=== PATIENT | female | born 1945 | race Caucasian/White ===

== ENCOUNTER → 2016-07-03 | Outpatient (CLI) | payer OTHER ==
[~2016-07-03] MED LIST: CLR10 PO; IBUP1CAP9 PO; METR1TAB4 PO; RISE150T PO
[2016-07-03 17:08] LABS: IMMUNOGLOBULN M 39.9 mg/dL (40-230)
--- NOTE | 2016-07-04 11:51 | CODING QUERY NO DIAGNOSIS ---
TREATMENT RENDERED WITHOUT A DIAGNOSIS To promote full compliance with coding requirements relating to patient care, physician participation is requested in all cases of packing tractor machine operator uncertainty. Please assist us with providing a diagnosis/symptom for the test(s) below: A diagnosis/symptom was not documented on your Order. A valid diagnosis/symptom is required to bill all insurances. Please remember that we are unable to code a diagnosis of rule out, probable, possible, questionable, or suspected. Tests that require a diagnosis: * FREE KAPPA LAMBDA CHAIN DIAGNOSIS: * IMMUNOGLOBIN G,A,M DIAGNOSIS: Provider Signature: Date: Thank you Isabell Ozuna [employer] Information Management Once completed, please kindly fax back to [phone] For questions please call [phone]
[2016-07-06 06:46] LABS: CREATININE UR 64 MG/DL (20-320); FREE KAPPA 17.2 MG/L (3.3-19.4); FREE KAPPA/LAMBDA RATIO 1.76 (0.26-1.65); FREE LAMBDA 9.8 MG/L (5.7-26.3)
== END | disposition home or self-care (01) ==
LOC: C.LABBC 13:27
PROVIDERS: ATTEND Internal Medicine Hematology & Oncology
DX: D47.2 Monoclonal gammopathy (principal)

== ENCOUNTER → 2016-08-04 | Outpatient (CLI) | payer OTHER ==
--- NOTE | 2016-08-07 15:12 | MAMMOGRAPHY REPORT ---
BILATERAL DIGITAL SCREENING MAMMOGRAM WITH CAD: 08/04/2016 TECHNIQUE: Current study was also evaluated with a Computer Aided Detection (CAD) system. Bilatera l CC and MLO views were obtained. COMPARISON: Comparison is made to exams dated: 08/02/2015 mammogram, 07/01/2014 mammogram, 06/24/2012 m ammogram, and 06/20/2011 mammogram - [facility]. BREAST COMPOSITION: The tissue of both breasts is heterogeneously dense, which may obscure small ma sses. FINDINGS: There is a 12 mm asymmetry seen within the left breast middle depth along the posterior n ipple line on the cc view, which likely represents normal overlapping fibroglandular tissue although spot compression tomosynthesis views are recommended for further evaluation. There are loosely cesia uped calcifications in the left 12:00 breast, for which spot magnification views are recommended for further evaluation. The remainder of both breasts are stable compared to prior exams, without suspicious masses, calcifi cations, or areas of nonsurgical architectural distortion noted. A linear scar marker denotes a sca r on the right upper outer breast. IMPRESSION: ACR BI-RADS CATEGORY 0: INCOMPLETE EVALUATION: NEED ADDITIONAL IMAGING EVALUATION Left breast asymmetry and calcifications, for which additional imaging evaluation is recommended. The patient will be called to schedule an appointment. Approximately 10% of breast cancers are not detected with mammography. A negative mammographic repor t should not delay biopsy if a clinically suggestive mass is present. Nelly Antony M.D. ah/:08/04/2016 15:44:46 Field Aide: Princess JENKINS(Jc)(Yenny), [facility] letter sent: Addl Imaging 0 BI-RADS Code: ACR BI-RADS Category 0: Incomplete Evaluation: Need Additional Imaging Evaluation
== END | disposition home or self-care (01) ==
LOC: C.MAMM 13:21
PROVIDERS: ATTEND Obstetrics & Gynecology
DX: Z12.31 Encounter for screening mammogram for malignant neoplasm of breast (principal); N64.89 Other specified disorders of breast; R92.1 Mammographic calcification found on diagnostic imaging of breast

== ENCOUNTER → 2016-08-17 | Outpatient (CLI) | payer OTHER ==
--- NOTE | 2016-08-17 13:26 | MAMMOGRAPHY REPORT ---
UNILATERAL LEFT DIGITAL DIAGNOSTIC MAMMOGRAM TOMOSYNTHESIS AND TARGETED LEFT ULTRASOUND: 08/17/2016 CLINICAL HISTORY: Callback from screening mammogram for left breast asymmetry and calcifications. TECHNIQUE: Breast tomosynthesis in addition to standard 2D mammography was performed. Spot magnifi cation left CC and ML views and spot compression tomosynthesis CC and MLO views were obtained. COMPARISON: Comparison is made to exams dated: 08/04/2016 mammogram, 08/02/2015 mammogram, 07/01/2014 mammogram, 06/30/2013 mammogram, 06/24/2012 mammogram, and 06/20/2011 mammogram - [facility]. BREAST COMPOSITION: The tissue of the left breast is heterogeneously dense, which may obscure small masses. FINDINGS: Spot compression views of the left breast demonstrate an ill-defined asymmetry with associ ated architectural distortion seen along the posterior nipple line on the cc view middle depth, like ly superior on the MLO view. Spot magnification views demonstrate loosely grouped coarse heterogene ous calcifications within the left 12:00 breast in the region of the asymmetry on the cc view, which span approximately 2.9 x 1.7 cm. Targeted ultrasound was performed of the left 12:00, 6:00, and subareolar breast. In the left breas t at 11:00, extending from 1-4 cm from the nipple, there is an ill-defined hypoechoic mass which reji sures up to 3.6 x 1.1 x 1.2 cm in extent. This is felt to correspond with the asymmetry and associa diana calcifications seen mammographically, and is indeterminant. In the left subareolar breast, ther e is an oval hypoechoic solid mass which measures 1.5 x 0.6 x 0.9 cm. The margins are not completel y circumscribed. This mass is indeterminant and ultrasound-guided biopsy is also recommended. In t he left breast at 6:00 periareolar region, there is an oval circumscribed solid hypoechoic 6 x 3 x 6 mm mass, which appears similar to the subareolar mass. IMPRESSION: ACR BI-RADS CATEGORY 4: SUSPICIOUS, TARGETED ULTRASOUND ACR BI-RADS CATEGORY 4: SUSPICI OUS 1. Ill-defined hypoechoic 3.6 cm mass in the left breast at 11:00 on ultrasound, which is felt to c orrespond with the asymmetry, architectural distortion, and calcifications seen mammographically. T he mass is indeterminant and ultrasound guided core needle biopsy is recommended for further evaluat ion. 2. Hypoechoic solid 1.5 cm mass in the left subareolar breast, which is indeterminate and ultrasoun d-guided core needle biopsy is recommended for further evaluation. Management of the smaller 6 mm s imilar-appearing mass in the left 6:00 breast will be based on the pathology results. A phone call was made to the physician's office to confirm faxed results were received. The patient has been verbally notified of the results. The patient tentatively scheduled the procedures before leaving the department. Approximately 10% of breast cancers are not detected with mammography. A negative mammographic repor t should not delay biopsy if a clinically suggestive mass is present. Nelly Antony M.D. ah/:08/17/2016 12:29:38 Air Quality Specialist: Lourdes DACOSTA)(Yenny), [facility] letter sent: Abnormal 4/5 BI-RADS Code: ACR BI-RADS Category 4: Suspicious Ultrasound BI-RADS: ACR BI-RADS Category 4: Suspic ious
== END | disposition home or self-care (01) ==
LOC: C.MAMM 10:56
PROVIDERS: ATTEND Obstetrics & Gynecology
DX: N64.9 Disorder of breast, unspecified (principal); R92.1 Mammographic calcification found on diagnostic imaging of breast; N63 Unspecified lump in breast

== ENCOUNTER → 2016-08-22 | Outpatient (CLI) | payer OTHER ==
--- NOTE | 2016-08-22 13:53 | Discharge Instructions ---
Discharge Instructions Procedure Procedure Date: Aug 22, 2016. Reason for visit: Left Masses. Discharge Discharge Date: Aug 22, 2016. Discharge Diagnosis: post left breast ultrasound guided core biopsy x 3 Instructions Activity Recommendations: Additional Limitations (see below) Return to School/Work: no limitations Recommended Home Diet: No Limitations Provider Instructions: ACTIVITY RECOMMENDATIONS: * No lifting, pushing, pulling or exercising the affected side for three days. RETURN TO SCHOOL/WORK: * You may return to work/school after the procedure, but do not perform any strenuous activities for 24 to 48 hours. MEDICATIONS: * Tylenol (two 325 mg) every four to six hours if needed for mild pain (if not allergic to Tylenol). DIET: * Resume previous diet. SPECIAL CARE INSTRUCTIONS: * Keep biopsy site dry for 24 hours. May shower after 24 hours, but do not soak (bathe) incision. * May remove Tegaderm (plastic patch) tomorrow AFTER showering. * Leave the steri-strips on for one week. Allow the steri-strips to fall off by themselves. If not off after one week, you may remove them. You may place a Bandaid crosswise over the strips, if desired. * Apply ice 10 minutes on and 10 minutes off as needed. * Wear a bra at bedtime to sleep more comfortably for 2-3 days. * Your referring physician should have the results after approximately 5 to 7 business days. * Call for unusual bleeding, fever, drainage, etc or if you have any questions call [phone] during normal business hours or after hours call Dr Eduardo, . FOLLOW UP VISIT: Follow-up with Referring Physician as scheduled. Allergies Coded Allergies: No Known Allergies (Unverified , 12/09/13) Aida Alcala Recommendations: Call your doctor if: * Temperature above 101 degrees * Pain not relieved by pain medicine ordered * There is increased drainage or redness from any incision * You have any unanswered questions or concerns. Your Doctors Instructions noted above were prepared by provider Edwige Eduardo. Patient Signature Section: Patient Instructions Signature Page Nelly Barclay Patient (or Guardian) Signature/Date: I have read and understand the instructions given to me by my caregivers. Caregiver/RN/Doctor Signature/Date: The above-named patient and/or guardian has received patient instructions on this date. + Original Patient Signature Page (only) stays with chart. Please make copy for patient.
--- NOTE | 2016-08-22 15:21 | MAMMOGRAPHY REPORT ---
ULTRASOUND GUIDED BIOPSY: 08/22/2016 CLINICAL HISTORY: 3 indeterminate solid masses in the left breast 11:00, 6:00 and retroareolar axes. Patient presents for ultrasound guided core biopsy 3. Please refer to the report from left breast ultrasound guided core biopsy performed at the same time for full detail. IMPRESSION: ULTRASOUND GUIDED BIOPSY Please refer to the report from left breast ultrasound guided core biopsy performed at the same time for full detail. Edwige Eduardo M.D. ay/:08/22/2016 14:32:55 Compo Conveyor Operator: Lourdes JENKINS(R)(M), [facility]
--- NOTE | 2016-08-22 15:21 | MAMMOGRAPHY REPORT ---
THIS REPORT HAS BEEN AMENDED. MULTIPLE ULTRASOUND GUIDED BIOPSIES LEFT BREAST: 08/22/2016 CLINICAL HISTORY: Indeterminate solid masses in the 11:00, retroareolar and 6:00 axes of the left br east. Patient presents for ultrasound-guided core needle biopsy 3. COMPARISON: Comparison is made to exams dated: 08/17/2016 ultrasound, 08/17/2016 mammogram, 08/04/2016 m ammogram, 08/02/2015 mammogram, 07/01/2014 mammogram, and 06/30/2013 mammogram - [facility]. PATIENT CONSENT: The procedure, risks and benefits were discussed with the patient and informed writ ten consent was obtained. Specific risks to this procedure include: bleeding, infection, puncture of adjacent structure, nontarget biopsy, sampling error, metal allergy and medication reaction. PROCEDURE DESCRIPTION: First real-time high-resolution ultrasound was performed in the 11:00, retroa reolar and 6:00 axes of the left breast, to reevaluate the indeterminate solid masses seen on prior ultrasound. They are all identified and appear similar to the previous ultrasound. After discussin g these findings with the patient the decision was made to sample all 3 masses that she would not ne ed to return for a possible additional biopsy in the 6:00 axis. Then a time out was performed and the left breast was agreed as the site of the biopsies. First the irregular solid multilobulated mass in the 11:00 axis was identified and targeted for biopsy. The skin of the left breast was prepped and draped in the usual sterile fashion. Subcutaneous and intrap arenchymal 1% buffered lidocaine, with and without epinephrine was administered as local anesthesia in the 11:00 axis. A skin incision was made. Through the incision, 3 samples were taken with a 14 g auge Achieve biopsy device. Due to hemorrhage after sampling, the mass was less conspicuous after t he third sample and a ribbon-shaped metallic marker was placed at the biopsy site. Hemostasis was ac hieved after several minutes of manual compression. Then the taller than wide hypoechoic solid mass in the 6:00 breast was identified and targeted for b iopsy. Additional 1% buffered lidocaine with and without epinephrine was administered. A skin inci tonja was made. Through the incision, 4 samples were taken with a 14 gauge Achieve biopsy device. A wing-shaped metallic marker was placed at the biopsy site. Hemostasis was achieved after several mi nutes of manual compression. Finally the parallel solid lobulated mass in the retroareolar left breast was identified and targete d for biopsy. Additional 1% buffered lidocaine without epinephrine was administered. A skin incisio n was made. Through the incision, 4 samples were taken with a 14 gauge Achieve biopsy device. A co iled metallic marker was placed at the biopsy site. Hemostasis was achieved after several minutes of manual compression. All of the samples were sent to the pathology department in appropriately labeled containers. The p atient left the department in satisfactory condition. Postprocedure left CC and MLO tomosynthesis images were obtained. 3 new metallic biopsy markers are seen within the left breast. There is a hematoma in the retroareolar breast measuring approximatel y 2.4 x 1.7 cm. Additional 3.5 cm hematoma at the site of the first biopsy in the 11:00 axis. The patient was instructed to keep ice and cold compresses on the area throughout the remainder of the e vening. IMPRESSION: ULTRASOUND GUIDED BIOPSY Status post ultrasound guided core needle biopsy 3 in the left breast 11:00, retroareolar and 6:00 axes. Metallic biopsy markers were placed at each site of biopsy. The patient will receive notification of the biopsy results from her referring physician. Edwige Eduardo M.D. ay/:08/22/2016 15:12:32 Client Relation Specialist: Lourdes JENKINS (R)(Yenny), [facility] AMENDMENT: 08/30/2016 Edwige Eduardo M.D. 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 The pathology results are concordant with the imaging appearance. Two additional ultrasound-guided core biopsies performed of other solid masses in the left retroareo lar breast and left 6:00 breast yielded fibroadenomas. These pathology results are also concordant with the imaging appearance. Given the ill-defined nature of the biopsy proven DCIS and dense breasts mammographically, it is dif ficult to assess accurate and measurable extent of disease. Therefore, further evaluation with a bi lateral breast MRI prior to definitive treatment is recommended.
--- NOTE | 2016-08-22 15:22 | MAMMOGRAPHY REPORT ---
UNILATERAL LEFT DIGITAL DIAGNOSTIC MAMMOGRAM TOMOSYNTHESIS: 08/22/2016 CLINICAL HISTORY: Status post ultrasound-guided core biopsy 3 in the left breast. Please refer to the report from left breast ultrasound guided core biopsy performed at the same time for full detail. IMPRESSION: POST PROCEDURE IMAGING FOR MARKER PLACEMENT Please refer to the report from left breast ultrasound guided core biopsy performed at the same time for full detail. Approximately 10% of breast cancers are not detected with mammography. A negative mammographic repor t should not delay biopsy if a clinically suggestive mass is present. Edwige Eduardo M.D. ay/:08/22/2016 14:32:00 Gas Plant Technician: Lourdes JENKINS(Jc)(Yenny), [facility] BI-RADS Code: Post Procedure Imaging For Marker Placement
== END | disposition home or self-care (01) ==
LOC: C.MAMM 12:35
PROVIDERS: ATTEND Obstetrics & Gynecology
DX: D05.12 Intraductal carcinoma in situ of left breast (principal); D24.2 Benign neoplasm of left breast

== ENCOUNTER → 2016-10-19 | Outpatient (CLI) | payer OTHER | END | disposition home or self-care (01) | LOC: C.PAPS 08:31 | PROVIDERS: ATTEND Obstetrics & Gynecology | DX: Z12.4 Encounter for screening for malignant neoplasm of cervix (principal); R87.610 Atypical squamous cells of undetermined significance on cytologic smear of cervix (ASC-US) ==

== ENCOUNTER → 2017-01-04 | Outpatient (CLI) | payer OTHER ==
[~2017-01-04] MED LIST changes: -METR1TAB4 PO
[2017-01-04 16:44] LABS: BASO % 0.6 %; BASO ABS # 0.03 K/uL (0-0.2); COMPLETE YES; EOS % 2.8 %; HEMATOCRIT 42.4 % (37-47); IG% 0.4 %; LYMPH % 29.6 %; LYMPH ABS # 1.39 K/uL (1.2-3.4); MEAN CELL VOLUME 88.3 fL (80-100); MEAN CORPUSCULAR HEMOGLOBIN 29.8 pg (25-34); MEAN CORPUSCULAR HGB CONC 33.7 g/dl (32-36); MEAN PLATELET VOLUME 10.1 fL (7.4-10.4); MONO % 8.5 %; NEUT % 58.1 %; PLATELET COUNT 258 K/uL (130-400); WHITE BLOOD COUNT 4.69 K/uL (4.8-10.8)
[2017-01-04 16:59] LABS: ALT/SGPT 18 U/L (12-78); AST/SGOT 12 U/L (15-37); BLOOD UREA NITROGEN 10 mg/dl (7-18); BUN/CREATININE RATIO 14.2 (10-20); CALCIUM 9.1 mg/dl (8.5-10.1); CARBON DIOXIDE 29 mmol/L (21-32); CHLORIDE 108 mmol/L (98-107); GLUCOSE 98 mg/dl (70-99); POTASSIUM 4.9 mmol/L (3.5-5.1); SODIUM 141 mmol/L (136-145)
[2017-01-04 17:01] LABS: ALKALINE PHOSPHATASE 63 U/L (45-117)
[2017-01-08 16:36] LABS: ALBUMIN 3.8 G/DL (3.8-4.8); FREE KAPPA 17.4 MG/L (3.3-19.4); FREE KAPPA/LAMBDA RATIO 1.69 (0.26-1.65); FREE LAMBDA 10.3 MG/L (5.7-26.3); IMMUNOFIXATION IGA SERUM 228 MG/DL (81-463); IMMUNOFIXATION IGG SERUM 1032 MG/DL (694-1618); IMMUNOFIXATION IGM SERUM 40 MG/DL (48-271); TOTAL PROTEIN 6.4 G/DL (6.2-8.3)
== END | disposition home or self-care (01) ==
LOC: C.LABBC 12:44
PROVIDERS: ATTEND Internal Medicine Hematology & Oncology
DX: D47.2 Monoclonal gammopathy (principal)

== ENCOUNTER → 2017-01-16 | Outpatient (CLI) | payer OTHER ==
[2017-01-16 14:14] VITALS: BP 151/91; PULSE 72; TEMP 36.7; O2SAT 97
--- NOTE | 2017-01-16 15:04 | Radiation Oncology Follow-Up ---
Radiation Oncology Follow-Up Date of Visit Jan 16, 2017. 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 She received 5130 cGy utilizing hypo-fractionation. Last Edited By: Jeanie Madrid on Dec 20, 2016 14:01 History of Present Illness Ms. Barclay is a 71-year-old postmenopausal female who recently presented with an abnormal mammogram on 08/04/2016. The patient had bilateral digital screening mammograms which revealed a 12 mm asymmetry in the left breast along the nipple line. The patient was subsequently brought back for a unilateral left digital diagnostic mammogram and targeted left ultrasound on 08/17/2016. Findings from the repeat mammogram revealed an ill-defined asymmetry with associated architectural distortion seen along the posterior nipple line; ultrasound revealed an ill-defined hypoechoic 3.6 mm mass in the left breast in the 11 o' clock position as well as a 1.5 cm mass in the left subareolar breast and an additional similar appearing mass in the left 6:00 breast. The patient underwent targeted ultrasound guided biopsies of 3 masses in the left breast on 08/22/2016. 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 The biopsies in the left breast at the 6 o'clock position and retroareolar positions did not reveal any evidence of carcinoma. The patient was seen and evaluated by Dr. Shakir Astorga who discuss treatment options. The patient elected to undergo a left breast lumpectomy on 09/22/[address] Astorga. Pathology from the left breast lumpectomy revealed ductal carcinoma in situ that measured 3 cm in the greatest dimension; the DCIS was grade 1 in there is no evidence of necrosis. The margins were negative and the closest margin was 1 mm which was the inferior margin. Pathology did confirm that there were changes consistent with the previous biopsy site. During the procedure, the patient did have a development of hematoma which is now healing. Dr. Astorga has discuss anti-hormonal therapy with the patient and she is currently considering this. We are now seeing the patient in consultation discussed role of adjuvant radiation therapy. She underwent a CT simulation and was found to be a candidate for hypo- fractionation. Radiation was completed 12/13/2016. She received 5130 cGy Interim History She's been doing well over this past month. The dark discoloration of the skin is steadily improving. There has been some dryness and peeling. She also noticed that there were moles on her breast that did become darker and slightly raised. These are now less raised. She continues to use the natural care gel. He denied any pain or tenderness. She's had no change of the axilla. Allergies Coded Allergies: No Known Allergies (Unverified , 12/09/13) Home Medications Scheduled Loratadine (Claritin), 10 PO Daily prn Risedronate Sodium (Actonel), 1 TAB PO MONTHLY Scheduled PRN Ibuprofen (Ibuprofen), 200 MG PO for Pain Review of Systems Gastrointestinal: Symptoms: WNL Oral: Symptoms: No Problems Respiratory: Symptoms: WNL Urinary: Symptoms: WNL Skin: Symptoms: No Problems Other Skin Symptoms: has several flat red small lopez onright arms and legs Breast: Right Upper Arm Measurement: 31.0 Right Mid Arm Measurement: 22.5 Right Wrist Measurement: 15.5 Left Upper Arm Measurement: 31.0 Left Mid Arm Measurement: 23.0 Left Wrist Measurement: 16.0 Additional Notes: She completed a distress management report and answered "no" to all questions other than she has some mild depression. She feels this is related to some bereavement also. She also has some difficulty with sleep. Physical Exam Vital Signs Date Time Temp Pulse Resp B/P (MAP) Pulse Ox O2 Delivery O2 Flow Rate FiO2 01/16/17 14:14 36.7 72 18 151/91 97 Pain: Patient Pain Scale: 0 - 10 Initial Pain Intensity: 0.0 General Appearance: no apparent distress Eyes: normal inspection, EOMI ENT: normal ENT inspection, hearing grossly normal Neck: no adenopathy, thyroid normal Respiratory/Chest: lungs clear, no respiratory distress, no accessory muscle use Breast: Breast examination reveals hyperpigmentation of the left breast. There is some mild edema in the lower quadrants. There is dry desquamation at the area of the nipple. There is no wet desquamation. There are no signs of infection. There are no masses or tenderness and no axillary adenopathy. Using [place] score cosmesis she has a a fair outcome. There are some keratotic lesions that show more hyperpigmentation in the area of treatment. The right breast showed no masses or tenderness no axillary adenopathy. Cardiovascular: regular rate, rhythm, no gallop, no murmur Neurologic/Psychiatric: no motor/sensory deficits, alert, normal mood/affect Skin: warm/dry Laboratory Studies Test 10/19/16 12:00 01/04/17 12:54 Human Papilloma Virus E6/E7 mRNA NOT DETECTED (NOT DETECTED) White Blood Count 4.69 K/uL (4.8-10.8) Red Blood Count 4.80 M/uL (4.2-5.4) Hemoglobin 14.3 g/dL (12.0-16.0) Hematocrit 42.4 % (37-47) Mean Corpuscular Volume 88.3 fL (80-100) Mean Corpuscular Hemoglobin 29.8 pg (25-34) Mean Corpuscular Hemoglobin Concent 33.7 g/dl (32-36) Platelet Count 258 K/uL (130-400) Mean Platelet Volume 10.1 fL (7.4-10.4) Neutrophils (%) (Auto) 58.1 % Lymphocytes (%) (Auto) 29.6 % Monocytes (%) (Auto) 8.5 % Eosinophils (%) (Auto) 2.8 % Basophils (%) (Auto) 0.6 % Neutrophils # (Auto) 2.72 K/uL (1.4-6.5) Lymphocytes # (Auto) 1.39 K/uL (1.2-3.4) Monocytes # (Auto) 0.40 K/uL (0.11-0.59) Eosinophils # (Auto) 0.13 K/uL (0-0.5) Basophils # (Auto) 0.03 K/uL (0-0.2) RDW Standard Deviation 46.0 fL (36.4-46.3) RDW Coefficient of Variation 14.2 % (11.5-14.5) Immature Granulocyte % (Auto) 0.4 % Immature Granulocyte # (Auto) 0.02 K/uL (0.00-0.02) Sodium Level 141 mmol/L (136-145) Potassium Level 4.9 mmol/L (3.5-5.1) Chloride Level 108 mmol/L (98-107) Carbon Dioxide Level 29 mmol/L (21-32) Anion Gap 4.0 mmol/L (3-11) Blood Urea Nitrogen 10 mg/dl (7-18) Creatinine 0.70 mg/dl (0.60-1.20) Estimated GFR () 101.0 Estimated GFR (Non- 87.2 BUN/Creatinine Ratio 14.2 (10-20) Random Glucose 98 mg/dl (70-99) Calcium Level 9.1 mg/dl (8.5-10.1) Total Bilirubin 0.4 mg/dl (0.2-1) Aspartate Amino Transferase (AST) 12 U/L (15-37) Alanine Aminotransferase (ALT) 18 U/L (12-78) Alkaline Phosphatase 63 U/L (45-117) Total Protein 6.7 gm/dl (6.4-8.2) Albumin 3.4 gm/dl (3.4-5.0) Globulin 3.3 gm/dl (2.5-4.0) Albumin/Globulin Ratio 1.0 (0.9-2) Ptuil-5-Ilovyvtqm 0.3 G/DL (0.2-0.3) Sgiiu-3-Fqjjjmxhv 0.5 G/DL (0.5-0.9) Qsrl-1-Spimswap 0.5 G/DL (0.4-0.6) Dkqp-9-Ikcfzmpk 0.4 G/DL (0.2-0.5) Gamma Globulins 1.0 G/DL (0.8-1.7) Prot Electrophor Monoclonal Peak 3 G/DL (NOT DETECTED) Serum Monoclonal Protein G/DL (NOT DETECTED) Serum Monoclonal Protein (2) G/DL (NOT DETECTED) Protein Electrophoresis Interpret SEE NOTE Total Protein (SPIKE) 6.4 G/DL (6.2-8.3) Albumin (SPIKE) 3.8 G/DL (3.8-4.8) Immunofixation IgG 1032 MG/DL (694-1618) Immunofixation IgA 228 MG/DL (81-463) Immunofixation IgM 40 MG/DL (48-271) Immunofixation Interpretation SEE NOTE Free Watchtower Light Chains, Quant 17.4 MG/L (3.3-19.4) Free Lambda Light Chains, Quant 10.3 MG/L (5.7-26.3) Free Watchtower/Lambda Light Chain Ratio 1.69 (0.26-1.65) Assessment & Plan Plan: Continue follow-up with her primary care physician and Dr. Astorga. She is seeing Dr. Astorga next month. She stated that she is planning to schedule follow-up mammography at that time. She has seen Dr. Kulkarni and has discussed tamoxifen. She plans to get her prescription for the tamoxifen from Dr. Astorga at her next visit. Today we completed a cancer survivorship care plan. A copy of the report was given to the patient. We discussed the follow- up mammography. We asked her to return to our office in 6 months. She may call if she has any questions or concerns. I've asked her use Aquaphor at bedtime over the next few weeks to help with the skin dryness. We discussed the hyperpigmentation of the skin and keratotic lesions will continue to fade. Total Time In Follow-Up I spent 20 minutes speaking to the patient and performing examination. I spent 20 minutes reviewing information, preparing the survivorship document, and completing this note. Copy To Shakir Astorga M.D.; Seferino Kulkarni D.O.; Jose Avendano M.D.
== END | disposition home or self-care (01) ==
LOC: C.ONC 14:03
PROVIDERS: ATTEND Radiology Radiation Oncology
DX: Z08 Encounter for follow-up examination after completed treatment for malignant neoplasm (principal); Z92.3 Personal history of irradiation; Z85.3 Personal history of malignant neoplasm of breast

== ENCOUNTER → 2017-02-28 | Outpatient (CLI) | payer OTHER ==
--- NOTE | 2017-02-28 14:18 | MAMMOGRAPHY REPORT ---
UNILATERAL LEFT DIGITAL DIAGNOSTIC MAMMOGRAM TOMOSYNTHESIS WITH CAD: 02/28/2017 CLINICAL HISTORY: History of left breast cancer status post lumpectomy September 2016 as well as radiatio n therapy. The patient reports no current complaints. TECHNIQUE: Breast tomosynthesis in addition to standard 2D mammography was performed. Current study was also evaluated with a Computer Aided Detection (CAD) system. Left CC and MLO 2-D and tomosynthes is images and spot magnification left CC and ML views were obtained. COMPARISON: Comparison is made to exams dated: 08/22/2016 ultrasound biopsy, 08/22/2016 mammogram, 017 ultrasound biopsy, 08/17/2016 ultrasound, 08/17/2016 mammogram, and 08/04/2016 mammogram - [facility]. BREAST COMPOSITION: The tissue of the left breast is heterogeneously dense, which may obscure small masses. FINDINGS: There are new post surgical changes in the left superior breast at approximately 12:00 from prior lumpectomy, including new density and architectural distortion at the lumpectomy bed. A linea r scar marker denotes a scar on the left upper outer breast. There is mild diffuse left breast skin thickening, likely a sequela of radiation therapy. Spot magnification views of the lumpectomy bed de monstrate no suspicious masses or clusters of microcalcifications. The remainder of the left breast is stable compared to prior exams, without suspicious masses, calcif ications, or areas of architectural distortion noted. Oval circumscribed benign-appearing 10 mm mass with an associated biopsy clip in the left lower inner quadrant is stable and was shown to represent a benign fibroadenoma on biopsy. IMPRESSION: ACR-BI-RADS CATEGORY 3: PROBABLY BENIGN Expected post treatment changes in the left breast, without evidence of malignancy. Recommend bilate ral diagnostic tomosynthesis mammograms in 6 months, to reevaluate the left breast posttreatment murdock ges and for routine mammography of the right breast. The patient has been verbally notified of the results. Approximately 10% of breast cancers are not detected with mammography. A negative mammographic report should not delay biopsy if a clinically suggestive mass is present. Nelly Antony M.D. /:02/28/2017 13:40:28 Car Record Clerk: Natividad Lu RT(R)(M), [facility] letter sent: Personal History 3 BI-RADS Code: ACR-BI-RADS Category 3: Probably Benign
== END | disposition home or self-care (01) ==
LOC: C.MAMM 13:11
PROVIDERS: ATTEND Surgery
DX: Z85.3 Personal history of malignant neoplasm of breast (principal); Z08 Encounter for follow-up examination after completed treatment for malignant neoplasm

== ENCOUNTER → 2017-08-07 | Outpatient (CLI) | payer OTHER ==
[2017-01-16 14:14] VITALS: BP 151/91; PULSE 72
[~2017-08-07] MED LIST changes: +TAMO20TA9 PO
[2017-08-07 14:56] VITALS: BP 148/80; PULSE 76; TEMP 37; O2SAT 100
--- NOTE | 2017-08-07 16:17 | Radiation Oncology Follow-Up ---
Radiation Oncology Follow-Up Date of Visit Aug 07, 2017. 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 She received 5130 cGy utilizing hypo-fractionation. Last Edited By: Jeanie Madrid on Dec 20, 2016 14:01 History of Present Illness Ms. Downey is a postmenopausal female who presented with an abnormal mammogram on 08/04/2016. The patient had bilateral digital screening mammograms which revealed a 12 mm asymmetry in the left breast along the nipple line. The patient was subsequently brought back for a unilateral left digital diagnostic mammogram and targeted left ultrasound on 08/17/2016. Findings from the repeat mammogram revealed an ill-defined asymmetry with associated architectural distortion seen along the posterior nipple line; ultrasound revealed an ill- defined hypoechoic 3.6 mm mass in the left breast in the 11 o'clock position as well as a 1.5 cm mass in the left subareolar breast and an additional similar appearing mass in the left 6:00 breast. The patient underwent targeted ultrasound guided biopsies of 3 masses in the left breast on 08/22/2016. 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 The biopsies in the left breast at the 6 o'clock position and retroareolar positions did not reveal any evidence of carcinoma. The patient was seen and evaluated by Dr. Shakir Astorga who discuss treatment options. The patient elected to undergo a left breast lumpectomy on 09/22/[address] Astorga. Pathology from the left breast lumpectomy revealed ductal carcinoma in situ that measured 3 cm in the greatest dimension; the DCIS was grade 1 in there is no evidence of necrosis. The margins were negative and the closest margin was 1 mm which was the inferior margin. Pathology did confirm that there were changes consistent with the previous biopsy site. During the procedure, the patient did have a development of hematoma which is now healing. Dr. Astorga has discuss anti-hormonal therapy with the patient and she is currently considering this. We are now seeing the patient in consultation discussed role of adjuvant radiation therapy. She underwent a CT simulation and was found to be a candidate for hypo- fractionation. Radiation was completed 12/13/2016. She received 5130 cGy Interim History She has been doing well over the past 6 months. She denies any changes to the breast. She has noted no masses or tenderness and no change in the axilla. She has had no swelling of her arm. She is up-to-date on mammography. She has on antiestrogen therapy. She takes tamoxifen. She has no difficulty with hot flashes. Occasionally she will have a warm feeling. The hot flashes are minimal. Allergies Coded Allergies: No Known Allergies (Unverified , 12/09/13) Home Medications Scheduled Tamoxifen (Nolvadex), 20 MG PO DAILY Scheduled PRN Ibuprofen (Ibuprofen), 200 MG PO Q6 PRN for Pain Loratadine (Claritin), 10 MG PO Daily PRN for Nasal Congestion Review of Systems Gastrointestinal: Symptoms: Rectal Bleeding GI Comments: Rectal spotting related to hemorrhoids per pt Oral: Symptoms: No Problems Respiratory: Symptoms: WNL Urinary: Symptoms: Nocturia Comments: 2-3 voids/night;Some increase in urge that she relates to aging Skin: Symptoms: No Problems Other Skin Symptoms: has several flat red small lopez onright arms and legs Breast: Right Upper Arm Measurement: 32.0 Right Mid Arm Measurement: 24.8 Right Wrist Measurement: 15.0 Left Upper Arm Measurement: 32.0 Left Mid Arm Measurement: 24.8 Left Wrist Measurement: 15.8 Arm Dominence: Right Physical Exam Vital Signs Date Time Temp Pulse Resp B/P (MAP) Pulse Ox O2 Delivery O2 Flow Rate FiO2 08/07/17 14:56 37.0 76 16 148/80 100 Fatigue: None General Appearance: no apparent distress Eyes: normal inspection, EOMI ENT: normal ENT inspection, hearing grossly normal Respiratory/Chest: lungs clear, no respiratory distress, no accessory muscle use Breast: Breast examination reveals well-healed incision of the left breast. There are no masses or tenderness and no axillary adenopathy. She has no skin retractions or nipple changes. Using the [place] score cosmesis she has an excellent outcome. The right breast show no masses or tenderness no axillary adenopathy. Cardiovascular: regular rate, rhythm, no gallop, no murmur Extremities: no pedal edema Neurologic/Psychiatric: no motor/sensory deficits, alert, normal mood/affect Skin: warm/dry Pain Management Patient Reports Pain: No Patient Preferred Pain Scale: 0 - 10 Initial Pain Intensity: 0.0 Pain Management Plan She denies pain therefore requires no pain management. Laboratory Laboratory Results: not applicable Pathology Pathology Results: not applicable Imaging Imaging Studies: were reviewed, and pertinent findings noted below Imaging Comments Patient: KAYLIN DOWNEY [facility] Rec: [id number] Address1: [address] [place] [address] Address2: Acct ID: [id number] Date: 1945 Sex: F Ref Phy: Shakir Astorga M.D. Att Phy: Shakir Astorga M.D. [place] Phy: Jose Avendano M.D. Inter Phy: Kaylin Antony MD [facility]: [place] [address] SC: [email or web address] Report #: [id number] Medical Doctor: STEWST Diagnosis: ESTABLISH NEW BASELINE, HX BREAST CA/ S/P SURGERY Service Date: 02/28/17 MNE: [id number] Ordering Dr: Shakir Astorga M.D. CC: Shakir Astorga M.D. CONF: DICTATED BY: Kaylin Antony MD MAMMOGRAPHY REPORT UNILATERAL LEFT DIGITAL DIAGNOSTIC MAMMOGRAM TOMOSYNTHESIS WITH CAD: 02/28/2017 CLINICAL HISTORY: History of left breast cancer status post lumpectomy September 2016 as well as radiation therapy. The patient reports no current complaints. TECHNIQUE: Breast tomosynthesis in addition to standard 2D mammography was performed. Current study was also evaluated with a Computer Aided Detection (CAD ) system. Left CC and MLO 2-D and tomosynthesis images and spot magnification left CC and ML views were obtained. COMPARISON: Comparison is made to exams dated: 08/22/2016 ultrasound biopsy, 2016 mammogram, 08/22/2016 ultrasound biopsy, 08/17/2016 ultrasound, 08/17/2016 mammogram, and 08/04/2016 mammogram - [facility]. BREAST COMPOSITION: The tissue of the left breast is heterogeneously dense, which may obscure small masses. FINDINGS: There are new post surgical changes in the left superior breast at approximately 12:00 from prior lumpectomy, including new density and architectural distortion at the lumpectomy bed. A linear scar marker denotes a scar on the left upper outer breast. There is mild diffuse left breast skin thickening, likely a sequela of radiation therapy. Spot magnification views of the lumpectomy bed demonstrate no suspicious masses or clusters of microcalcifications. The remainder of the left breast is stable compared to prior exams, without suspicious masses, calcifications, or areas of architectural distortion noted. Oval circumscribed benign-appearing 10 mm mass with an associated biopsy clip in the left lower inner quadrant is stable and was shown to represent a benign fibroadenoma on biopsy. IMPRESSION: ACR-BI-RADS CATEGORY 3: PROBABLY BENIGN Expected post treatment changes in the left breast, without evidence of malignancy. Recommend bilateral diagnostic tomosynthesis mammograms in 6 months , to reevaluate the left breast posttreatment changes and for routine mammography of the right breast. The patient has been verbally notified of the results. Approximately 10% of breast cancers are not detected with mammography. A negative mammographic report should not delay biopsy if a clinically suggestive mass is present. Kaylin Antony M.D. ah/:02/28/2017 13:40:28 Sporting Goods Salesperson: Natividad DACOSTA)(Yenny), [facility] letter sent: Personal History 3 BI-RADS Code: ACR-BI-RADS Category 3: Probably Benign Dictated by: Kaylin Antony MD Signed by: Kaylin Antony MD Assessment & Plan Plan: She is also seen and examined by Dr. Redmond. She will continue with scheduled mammography. She has mammogram scheduled for August 29, 2017. She continues on tamoxifen. She will continue follow-up with her primary care physician and medical oncology. She had been followed by Dr. Astorga, who has now retired, she has not decided if she will continue follow-up with his new partner. We asked her to return to our office in 1 year. She may call if she has any questions or concerns. Assessment & Plan (Attending) I agree with note created by Jeanie Madrid PA-C. I reviewed the patient's chart and information with her. I have examined and evaluated the patient. I reviewed relevant clinical information and answered the patient's and/or family' s questions. TYPIST Total Time In Follow-Up I spent 20 minutes speaking to the patient in performing examination. I spent 15 minutes reviewing information and completing this note. AK Total Time (Attending) In Follow-Up I spent 15 minutes examining and counseling the patient. TYPIST Copy To Seferino Kulkarni D.O.; Pro,Jose Arredondo M.D.
== END | disposition home or self-care (01) ==
LOC: C.ONC 14:48
PROVIDERS: ATTEND Physician Assistant Medical
DX: Z08 Encounter for follow-up examination after completed treatment for malignant neoplasm (principal); Z92.3 Personal history of irradiation; Z85.3 Personal history of malignant neoplasm of breast

== ENCOUNTER → 2017-08-29 | Outpatient (CLI) | payer OTHER ==
[~2017-08-29] MED LIST changes: -RISE150T PO
--- NOTE | 2017-08-29 15:37 | MAMMOGRAPHY REPORT ---
BILATERAL DIGITAL DIAGNOSTIC MAMMOGRAM TOMOSYNTHESIS WITH CAD: 08/29/2017 CLINICAL HISTORY: History of left breast cancer status post lumpectomy September 2016 as well as radiatio n therapy. The patient reports no current complaints. TECHNIQUE: Breast tomosynthesis in addition to standard 2D mammography was performed. Current study was also evaluated with a Computer Aided Detection (CAD) system. Bilateral CC and MLO 2D and tomosyn thesis images and spot magnification left CC and ML views were obtained. COMPARISON: Comparison is made to exams dated: 02/28/2017 mammogram, 08/22/2016 ultrasound biopsy, 2016 mammogram, 08/22/2016 ultrasound biopsy, 08/17/2016 ultrasound, and 08/17/2016 mammogram - [facility]. BREAST COMPOSITION: The tissue of both breasts is heterogeneously dense, which may obscure small mas ses. FINDINGS: There are stable post surgical changes in the left 12:00 breast from prior lumpectomy, incl uding stable density and architectural distortion at the lumpectomy bed. Linear scar markers denote scars on the left superior breast and right upper outer quadrant. Mild diffuse left breast skin thic kening is stable and is likely related to prior radiation therapy. The remainder of both breasts are stable compared to prior exams, without suspicious masses, calcifications, or areas of architectural distortion noted. A biopsy marker clip in the left 6:00 breast lopez the site of a prior biopsy whi ch was shown to represent a benign fibroadenoma. IMPRESSION: ACR-BI-RADS CATEGORY 3: PROBABLY BENIGN Stable posttreatment changes in the left breast, without mammographic evidence of malignancy in eithe r breast. Recommend follow-up diagnostic tomosynthesis mammograms of the left breast in 6 months to reevaluate posttreatment changes. The patient has been verbally notified of the results. Approximately 10% of breast cancers are not detected with mammography. A negative mammographic report should not delay biopsy if a clinically suggestive mass is present. Nelly Antony M.D. /:08/29/2017 13:10:49 Rn Access: [place] DACOSTA)(eYnny), [facility] letter sent: Personal History 3 BI-RADS Code: ACR-BI-RADS Category 3: Probably Benign
== END | disposition home or self-care (01) ==
LOC: C.MAMM 12:46
PROVIDERS: ATTEND Internal Medicine
DX: Z09 Encounter for follow-up examination after completed treatment for conditions other than malignant neoplasm (principal); Z85.3 Personal history of malignant neoplasm of breast; Z92.3 Personal history of irradiation